=== PATIENT | female | born 2005 | race Caucasian/White ===

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

== ENCOUNTER 2023-09-06 09:24 | Outpatient (AMB) | payer OTHER, SELFPAY ==
[2023-09-06 09:35] VITALS: BP 118/72; PULSE 94; O2SAT 97; BMI 20.7
--- NOTE | 2023-09-06 09:35 | MHC.OFFWIV ---
Intake Vital Signs 09/06/23 09:35 Height 5 ft 6 in Weight 128 lb 6 oz BMI 20.7 BP 118/72 Blood Pressure Location Lt brachial Position Sitting Pulse 94 Pulse Source Pulse Oximeter Pulse Oximetry (%) 97 Oxygen Delivery Method Room Air Intake Visit Reasons: EP ?UTI Patient Tobacco Use Status: Never used Tobacco Allergies No Known Allergies Allergy (Verified 09/06/23 09:35) Medication List - Last Reconciled 09/06/23 by Maurisio Huynh MD levonorgestrel-ethinyl estrad 0.1-20 mg-mcg (Vienva) 1 tab PO DAILY Do you need a note to return to daycare/school/sports/work: No HPI EP ?UTI HPI Details 18-year-old female came in today to be evaluated for possible urinary tract infection Patient has been having symptoms for the past 2 days, patient says that she feels uncomfortable when she urinate She is also having slight itching vaginally He has no back pain, there is no fever no chills no abdominal pain There is no blood in urine. There is no vaginal discharge. UA is positive for leuk esterase 1+ and slight amount of blood 1+ Patient was instructed to push fluids I have sent Levaquin 250 mg once a day for 3 days. We will also send urine for culture [facility] Social History Patient Tobacco Use Status: Never used Tobacco Review of Systems Const All systems reviewed & are unremarkable except as noted in HPI and below Physical Exam Vital Signs: Last Vital Signs Pulse 94 09/06/23 09:35 BP 118/72 09/06/23 09:35 Pulse Ox 97 09/06/23 09:35 Oxygen Delivery Method Room Air 09/06/23 09:35 BMI result Body Mass Index 20.7 Const General: no acute distress Orientation/consciousness: patient oriented x3 Eyes General: appearance normal, both eyes and all related structures Resp Effort & Inspection: normal respiratory effort and able to speak in complete sentences GI Other: No suprapubic pain General: Yes no CVA tenderness Back/Spine/Pelvis Back: no CVA tenderness Neuro General: patient oriented x3 Psych Mental Status: mental status grossly normal Results AMB Urinalysis, Automated UA Leukoctes 70 Dannie/uL Last Edit by Meliton Florentino CMA on 09/06/23 09:38 UA Nitrite Negative Last Edit by Meliton Florentino CMA on 09/06/23 09:38 UA Urobilinogen 0.2 mg/dL Last Edit by Meliton Florentino CMA on 09/06/23 09:38 UA Protein 30 mg/dL Last Edit by Meliton Florentino CMA on 09/06/23 09:38 UA pH 6.0 Last Edit by Meliton Florentino CMA on 09/06/23 09:38 UA Blood 25 Andi/uL Last Edit by Meliton Florentino CMA on 09/06/23 09:38 UA Specific [place] 1.025 Last Edit by Meliton Florentino CMA on 09/06/23 09:38 UA Ketone Negative Last Edit by Meliton Florentino CMA on 09/06/23 09:38 UA Bilirubin 1 mg/dL Last Edit by Meliton Florentino CMA on 09/06/23 09:38 UA Glucose 0 mg/dL Last Edit by Meliton Florentino CMA on 09/06/23 09:38 Results Reviewed Results Reviewed: Laboratory Last Values Urine pH (Auto) 6.0 09/06/23 09:37 Specific [place] (Auto) 1.025 09/06/23 09:37 Urine Protein (Auto) 30 mg/dL 09/06/23 09:37 Glucose (UA)(Auto) 0 mg/dL 09/06/23 09:37 Urine Ketones (Auto) Negative 09/06/23 09:37 Urine Blood (Auto) 25 Andi/uL 09/06/23 09:37 Urine Nitrite (Auto) Negative 09/06/23 09:37 Urine Bilirubin (Auto) 1 mg/dL 09/06/23 09:37 Urine Urobilinogen (Auto) 0.2 mg/dL 09/06/23 09:37 Leukocyte Esterase (Auto) 70 Dannie/uL 09/06/23 09:37 Assessment & Plan Assessment & Plan (1) Acute cystitis: Code(s): N30.00 - Acute cystitis without hematuria Qualifiers: Hematuria presence: with hematuria Qualified Code(s): N30.01 - Acute cystitis with hematuria (2) Vaginal itching: Code(s): N89.8 - Other specified noninflammatory disorders of vagina Plan 18-year-old female came in today to be evaluated for possible urinary tract infection Patient has been having symptoms for the past 2 days, patient says that she feels uncomfortable when she urinate She is also having slight itching vaginally He has no back pain, there is no fever no chills no abdominal pain There is no blood in urine. There is no vaginal discharge. UA is positive for leuk esterase 1+ and slight amount of blood 1+ Patient was instructed to push fluids I have sent Levaquin 250 mg once a day for 3 days. We will also send urine for culture Orders: Orders Urine Culture Today N30.00 - Acute cystitis without hematuria AMB Urinalysis Automated Today Z13.9 - Encounter for screening, unspecified Medications: New levofloxacin 250 mg PO DAILY 3 days 3 tabs 0RF nystatin Use it at night 1 appl topical DAILY 7 days 15 grams 0RF Vaginal itching Coding Level of Care Code Est Pt Level 3 (04068) Diagnoses Acute cystitis with hematuria N30.01 Hematuria presence: with hematuria Vaginal itching N89.8
== END 2023-09-06 10:37 | disposition home or self-care (01) ==
PROVIDERS: Visit Provider Internal Medicine
DX: N30.01 Acute cystitis with hematuria (principal); N89.8 Other specified noninflammatory disorders of vagina; Z13.9 Encounter for screening, unspecified
CPT/HCPCS: 81003; 99213

== ENCOUNTER 2023-09-06 11:48 | Outpatient (REF) | payer OTHER, SELFPAY | END 2023-09-06 11:49 | disposition home or self-care (01) | LOC: HO.LNP 11:48 | PROVIDERS: Visit Provider Internal Medicine | DX: N30.00 Acute cystitis without hematuria (principal); Z13.9 Encounter for screening, unspecified | CPT/HCPCS: 87086; 87088 ==

== ENCOUNTER 2024-05-31 12:06 | Outpatient (AMB) | payer OTHER, SELFPAY ==
[2024-05-31 12:43] VITALS: BP 116/70; PULSE 102; TEMP 37.6; O2SAT 98
--- NOTE | 2024-05-31 12:43 | AM.OFFWIN_ITS ---
Intake Vital Signs 05/31/24 12:43 Weight 144 lb BP 116/70 Blood Pressure Location Rt brachial Position Sitting Pulse 102 H Pulse Source Pulse Oximeter Temp 99.6 F Temp Source Oral Pulse Oximetry (%) 98 Oxygen Delivery Method Room Air Intake Visit Reasons: EP flu symptoms Intake Note: Patient here for cough, congestion, body aches and headaches that started yesterday. she states everyone in her house has the flu but she was out of town for a little while and since being back symptoms kind of hit her all at once. Patient Tobacco Use Status: Never used Tobacco Allergies No Known Allergies Allergy (Verified 09/06/23 09:35) Do you need a note to return to daycare/school/sports/work: Yes HPI HPI Comments History of Present Illness Details 19 y/o female patient who presents to [facility] walk [facility] clinic with c/o URI symptoms since yesterday. She c/o cough, chest/nasal congestion, body aches and headaches. Reports that she was out of town ([place], [place]) for Spring Break. Her Family home is currently sick with Influenza Infection. [facility] Medical History (Updated 05/31/24 @ 12:52 by Jenise Waite NP) Acute respiratory disease Social History Patient Tobacco Use Status: Never used Tobacco Review of Systems Const All systems reviewed & are unremarkable except as noted in HPI and below Physical Exam Vital Signs: Last Vital Signs Temp 99.6 F 05/31/24 12:43 Pulse 102 H 05/31/24 12:43 BP 116/70 05/31/24 12:43 Pulse Ox 98 05/31/24 12:43 Oxygen Delivery Method Room Air 05/31/24 12:43 Const General: cooperative and no acute distress Nutritional Appearance: well nourished Orientation/consciousness: patient oriented x3 HEENT Head: Yes normocephalic Ears: external ears normal and TM abnormal with fluid behind the TM bilateral General nose exam: Abnormal mucous membranes and turbinates present boggy and Nasal discharge present Face and sinus: Yes sinuses nontender Mouth: moist mucous membranes Throat: Yes postnasal drainage Resp Effort & Inspection: normal respiratory effort and able to speak in complete sentences Auscultation: clear to auscultation bilaterally, no crackles, no rales, no rhonchi and no wheezes Cardio Heart sounds: S1 normal heart sound present and S2 normal heart sound present Neuro General: patient oriented x3 Assessment & Plan Assessment & Plan (1) Acute respiratory disease: Code(s): J06.9 - Acute upper respiratory infection, unspecified Plan: Ordered SARs Ordered Tamiflu due to recent contact with Family members with Influenza. OTC cold/Flu remedies Acetaminophen for fever and pain relief. Orders: Orders SARS-CoV2/FLU/RSV Today J06.9 - Acute upper respiratory infection, unspecified Medications: New oseltamivir (Tamiflu) 75 mg PO BID 5 days 10 caps 0RF J06.9 - Acute upper respiratory infection, unspecified acetaminophen 1,000 mg (2 x 500 mg) PO Q6H PRN 30 caps 0RF pain J06.9 - Acute upper respiratory infection, unspecified dextromethorphan-guaifenesin 5-100 mg/5 mL (Robitussin Honey Max DM) 10 mL PO Q8H PRN 500 mL 0RF cough and cold J06.9 - Acute upper respiratory infection, unspecified Coding Level of Care Code Est Pt Level 4 (81404) Diagnoses Acute respiratory disease J06.9 Time Spent (min) 20
--- OUTSIDE RECORDS SUMMARY | 2024-05-31 14:30 | XMS_ITS | Clinical Summary ---
Author Organization [facility] [address] [place] [address] [place] [address] Phone Care Team Providers Care Linoleum Tile Floor Layer Name Role Phone Bernardo Bravo MD Primary Care Pr ovider Allergies No known active allergies Medications fluconazole (DIFLUCAN) 150 mg tablet Take 1 tab as needed for symptoms. May repeat dose in 72hrs if symptoms persist. 2 tablet 5 Active levonorgestrel- ethinyl estradiol (AVIANE,ALESSE) 0.1-20 mg-mcg per tablet Take 1 tablet by mouth 1 (one) time each day. 28 tablet 5 5 Active levonorgestrel- ethinyl estradiol (AVIANE,ALESSE) 0.1-20 mg-mcg per tablet Take 1 tablet by mouth 1 (one) time each day. 4 05/02/19 25 Discontinu ed(Reorder ) Active Problems Problem Noted Date Diagnosed Date Hearing loss of right ear 08/16/2018 Overview (05/02/2024): Seen by Razia Banegas pharmacy tech customer service 03/15/2019 Left ear normal hearing. Right ear moderately severe hearing loss at 1981-8868 Hz Consistent use of hearing aids. Suggests preferential seating and reduced background noise. Needs to face talker and be within 6-8 fet of talker, speaking slowly Intrinsic atopic dermatitis 06/11/2010 Encounters Date Type Department Care Team Description 05/31/2024 Nurse Triage Adult Medicine [address] [address] Bernardo Bravo MD Flu Symptoms 05/02/2024 5:00 PM EST Office Visit Adult Medicine [address] [phone] Katie Mejia PA Vaginal yeast infection (Primary Dx); Referral of patient from Last 3 Months Immunizations Name Administration Dates Next Due DTaP 5 pertussis antigens, D iptheria Tetanus acellular pertussis (Daptacel) 6wks to less than 7yo 06/23/2007,11/06/2004,2003,07/17,2003 HPV 9-valent (Gardisil) 9yo to less than 46yo 08/10/2017,12/24/2015 Hepatitis A Pediatric (Havri x; Vaqta) 12mo to less than 19yo 12/24/2015,10/26/2013 Hepatitis B Pediatric (Enger ix B; Recombivax HB) to less than 20 yo 2003,2003,2003 HiB PRP-T conjugate (Acthib, Hiberix) 6wks and older 2003,2003 Hib (HbOC) 08/05/2004,2003 IPV Inactivated polio (Ipol) 6wks and older 06/23/2007,2003,2003,05/09 Influenza Quadrivalent, 0.5m l, preservative free (Fluarix; FluLaval; Fluzone) ages 6mo and older (Afluria) 3yo and older 02/20/2020 Influenza Quadrivalent, with preservative (Fluzone; Afluria) 6mo and older 12/24/2015 Influenza trivalent, with pr eservative (Fluzone; Afluria) 6mo and older 03/25/2006,05/15/2004,04/10/2004 Influenza, live, intranasal, quadrivalent (FluMist) 2yo to less than 50yo 11/10/2012 MMR, measles mumps and rubel la Live (Priorix; M-M-R II) 12mo and older 06/23/2007,04/10/2004 Meningococcal MCV4P 08/29/2019,11/01/2014 Pneumococcal Conjugate Vacci ne, 7 Valent 08/05/2004,2003,2003,05/09 Tdap Tetanus diptheria acell ular pertussis (Boostrix; Adacel) 7yo and older 11/01/2014 Varicella live (Varivax) 12m o and older 06/23/2007,04/10/2004 Social History Tobacco Use Types Packs/Day Years Used Date Smoking Tobacco: Never Assessed Comments Unknown Sex and Gender Information Value Date Recorded Sex Assigned at Not on file Legal Sex Female 11:08 AM EDT Gender Identity Not on file Sexual Orientation Not on file Last Filed Vital Signs Vital Sign Reading Time Taken Comments Blood Pressure 104/70 05/02/2024 4:55 PM EST Pulse 95 05/02/2024 4:55 PM EST Temperature 36.6 ??C (97.8 ??F) 05/02/2024 4:55 PM ES T Respiratory Rate 12 05/02/2024 4:55 PM EST Oxygen Saturation - - Inhaled Oxygen Concentration - - Weight 65.8 kg (145 lb) 05/02/2024 4:55 PM EST Height 167.6 cm (5' 6 ) 05/02/2024 4:55 PM EST Body Mass Index 23.4 05/02/2024 4:55 PM EST Plan of Treatment Health Maintenance Due Date Last Done Comments Gonorrhea/Chlamydia Screening 2003 Meningococcal B Vacine (1 of 2 - Standard) 2019 Annual Well Child Visit (3-21 years old) 10/14/2023 08/04/2022, 11/04/2020, 08/22/2019, Additional history exists Depression Screening 10/14/2023 HIV Screening 10/14/2023 Hepatitis C Screening 10/14/2023 Social Influencers of Health Screening 10/14/2023 COVID-19 Vaccine ( season) 2023 Influenza Vaccine (#1) 2023 , 12/24/2015, 11/10/2012, Additional history exists Cervical Cancer Screening: Pap Smear 2024 DTaP,Tdap,and Td Vaccines (7 - Td or Tdap) 11/01/2024 11/01/2014, 06/23/2007, 11/06/2004, Additional history exists Hepatitis B Vaccines Completed 2003, 2003, 2003 HIB Vaccines Completed 08/05/2004, 10/2003, 2003, Additional history exists Pneumococcal Vaccine: Pediatrics (0 to 5 Years) and At-Risk Patients (6 to 64 Years) Completed 08/05/2004, 2003, 2003, Additional history exists IPV Vaccines Completed 06/23/2007, 12/12, 2003, Additional history exists MMR Vaccines Completed 06/23/2007, 04/10/2004 Varicella Vaccines Completed 06/23/2007, 04/10/2004 Hepatitis A Vaccines Completed 12/24/2015, 10/27/19 HPV Vaccines Completed 08/10/2017, 12/24/2015 Meningococcal ACWY Vaccine Completed 08/29/2019, RSV Immunization Patients Under 20 months Aged Out No longer eligible based on patient's age to complete this topic Insurance [facility] [employer] Care Teams Linoleum Tile Floor Layer Relationship Specialty Start Date End Date Bernardo Bravo MD [address], [place] [phone] PCP - General 09/05/23
--- OUTSIDE RECORDS SUMMARY | 2024-05-31 14:30 | XMS_ITS | Encounter Summary ---
Author Organization [facility] Address [address] [place] [address] Care Team Providers Care Mathematician Research Name Role Phone Bernardo Bravo MD Primary Care Pr ovider Reason for Visit * Reason Onset Date Comments Flu Symptoms 05/31/2024 Encounter Details Date Type Department Care Team (Late st Contact Info) Description 05/31/2024 Nurse Triage Adult Medicine [address] [phone] Bernardo Bravo MD [address] [place] [id number] Flu Symptoms Social History Tobacco Use Types Packs/Day Years Used Date Smoking Tobacco: Never Assessed Comments Unknown Sex and Gender Information Value Date Recorded Sex Assigned at Not on file Legal Sex Female 11:08 AM EDT Gender Identity Not on file Sexual Orientation Not on file documented as of this encounter Progress Notes * Teresa Cifuentes RN - 05/31/2024 9:34 AM EDT She was advised to go to any [facility] of her choice as she is requesting a note excusing her from work. She is in agreement with this plan. Reason for Disposition Cough Answer Assessment - Initial Assessment Questions 1. ONSET: When did the cough begin? Yesterday 2. SEVERITY: How bad is the cough today? 08/21 3. SPUTUM: Describe the color of your sputum (e.g., none, dry cough; clear, white, yellow, green) clear 4. HEMOPTYSIS: Are you coughing up any blood? If Yes, ask: How much? (e.g., flecks, streaks, tablespoons, etc.) No hemopysis 5. DIFFICULTY BREATHING: Are you having difficulty breathing? If Yes, ask: How bad is it? (e.g., mild, moderate, severe) - MILD: No SOB at rest, mild SOB with walking, speaks normally in sentences, can lie down, no retractions, pulse < 100. - MODERATE: SOB at rest, SOB with minimal exertion and prefers to sit, cannot lie down flat, speaksin phrases, mild retractions, audible wheezing, pulse 100-120. - SEVERE: Very SOB at rest, speaks in single words, struggling to breathe, sitting hunched forward,retractions, pulse > 120. No shortness of breath 6. FEVER: Do you have a fever? If Yes, ask: What is your temperature, how was it measured, and when did it start? She reports a fever with a temp of 99-100 degrees 7. CARDIAC HISTORY: Do you have any history of heart disease? (e.g., heart attack, congestive heart failure) No 8. LUNG HISTORY: Do you have any history of lung disease? (e.g., pulmonary embolus, asthma, emphysema) No 9. PE RISK FACTORS: Do you have a history of blood clots? (or: recent major surgery, recent prolonged travel, bedridden) She returned from [place] on Tuesday. OTHER SYMPTOMS: Do you have any other symptoms? (e.g., runny nose, wheezing, chest pain) Runny nose, body aches, sore throat, chills, headache 11. : Is there any chance you are ? When was your last menstrual period? No. She currently has her period. 12. TRAVEL: Have you traveled out of the country in the last month? (e.g., travel history, exposures) Pt's mother, older and younger brother all tested positive for Flu A at the doctors. Protocols used: Cough - Acute Lhtadehkvv-V-UI * Pretty Valenzuela - 05/31/2024 8:55 AM EDT Patient call requires triage: Symptoms patient is presenting: body aches, chills, fever, stuffy nose, cough, headache, Family members have FLU A How long has patient had these symptoms?: 2 days For ALL patients calling to schedule any appointment (routine, sick visit, follow up, consult, etc.) in the outpatient setting please ask the following questions: Do you have fever of higher than 101, sore throat with difficulty swallowing or severe shortness ofbreath? no If YES to any of these above symptoms, send a message to triage and do not book. Red dot. If no, an audio or video visit should be booked. Have you had close contact with someone with Coronavirus in the last 14 days? no Have you traveled abroad? no Have you traveled recently to another state outside of [place], [place], [place], [place], [place], [place], [place]? no o If yes, did you quarantine for 14 days or have a negative covid test? no If yes to any of the above, patient is not to be scheduled in office until after 14 day quarantine or negative covid test. If pain or injury related was it due to an accident at work or from a motor vehicle accident? If yes, date of accident/Injury: No If yes, gather 3rd alliance party insurance information Third Alliance Party Information: not applicable PCP: Bernardo Bravo MD Payor: [facility] / Plan: [facility] MEDICAID / Product Type: *No Product type* / documented in this encounter Plan of Treatment Not on file documented as of this encounter Visit Diagnoses Not on filedocumented in this encounter Care Teams Mathematician Research Relationship Specialty Start Date End Date Bernardo Bravo MD [address] [place] [phone] PCP - General 09/05/23 documented as of this encounter
--- OUTSIDE RECORDS SUMMARY | 2024-05-31 14:30 | XMS_ITS | Encounter Summary ---
Author Organization [facility] Address [address] [place] [phone] Phone Care Team Providers Care Bathroom Tiling Professional Name Role Phone Provider, Breanna WRAY Primary Care Provider [phone] Encounter Details Date Type Department Care Team ([facility] st Contact Info) Description 10/28/2016 Conversion Encounter [facility] - [address] [address] Social History Tobacco Use Types Packs/Day Years Used Date Smoking Tobacco: Never Assessed Comments Unknown Sex and Gender Information Value Date Recorded Sex Assigned at Not on file Legal Sex Female 5:05 PM EDT Gender Identity Female 03/20/2020 11:28 AM EST Sexual Orientation Straight 03/25/2020 9: 14 AM EST documented as of this encounter Plan of Treatment Not on file documented as of this encounter Visit Diagnoses Not on filedocumented in this encounter Care Teams Bathroom Tiling Professional Relationship Specialty Start Date End Date Provider, MD Breanna [address] [place] [address] PCP - General Pediatrics 05/05/23 01/17/24 documented as of this encounter
--- OUTSIDE RECORDS SUMMARY | 2024-05-31 14:30 | XMS_ITS | Clinical Summary ---
Author Organization [facility] Address [address] [place] [address] Phone Care Team Providers Care Caustic Pump Operator Name Role Phone Unavailable Primary Care Provider Unavailabl e Allergies No known active allergies Medications Vienva 0.1-20 MG-MCG per tabletIndications: Encounter for initial prescription of contraceptive pills TAKE 1 TABLET BY MOUTH EVERY DAY 28 tablet 11 4 Active Active Problems Problem Noted Date Diagnosed Date Hearing loss of right ear 08/16/2018 Overview (05/15/2019): Seen by Razia Banegas bank examiner 03/15/2019 Left ear normal hearing. Right ear moderately severe hearing loss at 0360-5027 Hz Consistent use of hearing aids. Suggests preferential seating and reduced background noise. Needs to face talker and be within 6-8 fet of talker, speaking slowly Assessment & Plan (08/22/2019 4:13 PM EDT): Has hearing aide. Followed yearly by bank examiner Intrinsic atopic dermatitis 06/11/2010 Assessment & Plan (08/22/2019 4:13 PM EDT): No issues currently No meds currently - occas needs topical steroid Resolved Problems Problem Noted Date Diagnosed Date Resolved Date Need for case management follow-up 08/22/2019 08/04/2022 Overview (11/04/2020): 08/22/2019 : Jenae who is 14 yr 5 mo was seen today during the covid 19 pandemic. When the pandemic subsides, she needs Age appropriate vital signs, Age appropriate, 14 yr 5 mo (menactra), immunizations, Age appropriate Vision +/- hearing screening, GC/Chlamydia screening Family may wish to get menactra when in for Influenza vaccine this Fall 11/04/2020 : Jenae who is 15yr 7mo was seen today during the covid 19 pandemic. When the pandemic subsides, she needs Age appropriate vital signs, Age appropriate, 15yr 7mo, immunizations, Age appropriate Vision +/- hearing screening, CBC, GC/Chlamydia screening, Lipid screening Encounters Date Type Department Care Team Description 04/08/[address] [facility] [address] [place] [address] Maru Pardo MD Encounter for initial prescription of contraceptive pills 03/21/[address] [facility] [address] [place] [address] Maru Pardo MD Encounter for initial prescription of contraceptive pills from Last 3 Months Immunizations Immunization Administration Dates Next Due DTaP 5 06/23/2007, 5,2003,07/17,2003 HPV Vaccine 9 Valent 08/10/2017,12/24/2015 Hep A, ped/adol 12/24/2015,10/26/2013 Hep B, ped/adol 2003,2003,2003 Hib (HbOC) 08/05/2004,2003 Hib (PRP-T) 2003,2003 IPV 06/23/2007, 4,2003,05/09 Influenza, injectable, quadrivalent 12/24/2015 Influenza, injectable, quadr ivalent, preservative free 02/20/2020 Influenza, injectable, trivalent 03/25/2006,03/0 06/2004,04/10/2004 Influenza, intranasal, quadrivalent 11/10/2012 MMR 06/23/2007,04/10/2004 Meningococcal Conj (Menactra) MCV4P 08/29/2019,0 11/01/2014 Pneumococcal Conjugate 08/05/2004,2003,2003,05/09 Tdap 11/01/2014 Varicella 06/23/2007,04/10/2004 Family History Relation Name Status Comments Brother Meliton Alive Brother: Alive and well, Alive and well Father Meliton Sánchez Alive Father: Hyper tension Mother Elina Ag Alive Mother: Alive a nd well Other Family history of Asthma, Family history of Diabetes mellitus, Family history of Sudden /[place] under 55, Family history of Migraines Social History Tobacco Use Types Packs/Day Years Used Date Smoking Tobacco: Never Smokeless Tobacco: Never Comments:never smoker Alcohol Use Standard Drinks/Week Comments Never 0 (1 standard drink = 0.6 oz pur e alcohol) Hunger/Food Answer Date Recorded In the last 12 months, did y ou or your family ever eat less than you felt you should because there wasn't enough money for food? No 08/02/2022 Stable Housing Answer Date Recorded Are you worried that in the next 2 months you may not have stable housing? No 08/02/2022 Transportation Concerns Answer Date Rec orded In the last 12 months, have you or your family ever had to go without healthcare because you didn't have a way to get there? No 08/02/2022 Hazards in Home Answer Date Recorded Think about the place you li ve. Do you have problems with any of the following? Pests (mice or roaches), mold, no/not working smoke detectors, water leaks, no window guards. No 2022 Financing Utilities Answer Date Recorde d In the last 12 months, has t he electric, gas, oil, or water company threatened to shut off your services in your home? No 08/02/2022 Safety at Home Answer Date Recorded Are you or your family worried about feeling saf e in your home? No 08/02/2022 Outside Support Answer Date Recorded Do you feel that you need mo re support from other people or programs to help you care for yourself or your family? No 08/02/2022 Understanding Health Concerns Answer Da te Recorded Do you need help understandi ng your or your child's healthcare needs (diagnosis, medications, plan, etc.)? No 08/02/2022 Financing Health Concerns Answer Date R ecorded In the last 12 months, was t here a time when your child needed to see a doctor or get medications or supplies but could not because of cost? No 08/02/2022 Missing School or Work Answer Date Kali rded Did you or your child miss s chool or work because of a health problem that could have been avoided? No 08/02/2022 Comments No Sex and Gender Information Value Date Recorded Sex Assigned at Not on file Legal Sex Female 5:05 PM EDT Gender Identity Female 03/20/2020 11:28 AM EST Sexual Orientation Straight 03/25/2020 9: 14 AM EST Last Filed Vital Signs Vital Sign Reading Time Taken Comments Blood Pressure 117/66 08/04/2022 8:39 AM EDT Pulse 73 08/04/2022 8:39 AM EDT Temperature 37.1 ??C (98.8 ??F) 07/14/2022 4:28 PM ED T Respiratory Rate - - Oxygen Saturation - - Inhaled Oxygen Concentration - - Weight 65 kg (143 lb 3.2 oz) 08/04/2022 8:39 AM EDT Height 167.6 cm (5' 6 ) 08/04/2022 8:39 AM EDT Body Mass Index 23.11 08/04/2022 8:39 AM EDT Plan of Treatment Health Maintenance Due Date Last Done Comments Men B Vaccine (1 of 2 - Standard) 2019 HIV Screening 04/12/2023 04/12/2022 Syphilis Screening (consider for higher risk patients) 04/12/2023 04/12/2022 Influenza Vaccines (#1) 2023 02/20/20 20, 12/24/2015, 11/10/2012, Additional history exists COVID-19 Vaccine (1 - 2023-2 5 season) 2023 DTaP,Tdap,and Td Vaccines (7 - Td or Tdap) 11/01/2024 11/01/2014, 06/23/2007, 11/06/2004, Additional history exists Hepatitis B Vaccines Completed 2003, 2003, 2003 HIB Vaccines Completed 08/05/2004, 10/2003, 2003, Additional history exists Pneumococcal Vaccine Completed 08/05/2004, 2003, 2003, Additional history exists IPV Vaccines Completed 06/23/2007, 12/12, 2003, Additional history exists MMR Vaccines Completed 06/23/2007, 04/10/2004 Varicella Vaccines Completed 06/23/2007, 04/10/2004 Hepatitis A Vaccines Completed 12/24/2015, 10/27/19 14 HPV Vaccines Completed 08/10/2017, 12/24/2015 Meningococcal Vaccine Completed 08/29/2019, 015 Procedures * Due to [place] [employer] law, this organization might not be sharing sensitive test results. Procedure Name Priority Date/Time Associated Diagnosis Comments CHLAMYDIA AND GONORRHEA, AMPLIFIED Routine 08/04/2022 9:17 AM EDT Encounter for screening examination for sexually transmitted disease RPR Routine 04/12/2022 2:53 PM EST Routine screening for STI (sexually transmitted infection) from Last 3 Months or Most Recently Relevant to Health Maintenance Results * Due to [place] [employer] law, this organization might not be sharing sensitive test results. * Chlamydia and Gonorrhoea, Amplified (08/04/2022 9:17 AM EDT) Chlamydia Trachomatis, DNA Probe NEGATIVE (NEG) [facility] Comment: No Chlamydia Trachomatis RNA detected in this patient's sample ? (REFERENCE RANGE/NORMAL VALUE: NOT DETECTED) ? Note: This test uses leather leveler- mediated amplification method to detect rRNA from C. Trachomatis URINE GC AMP PROBE NEGATIVE (NEG) [facility] Comment: No Neisseria Gonorrhoeae RNA detected in this patient's sample ? (REFERENCE RANGE/NORMAL VALUE: NOT DETECTED) ? NOTE: This test uses leather leveler-mediated amplification method to detect rRNA from N.Gonorrhoeae. A negative result does not preclude infection. In the case of a negative urine result, testing of an endocervical(female) or urethral (male) specimen is recommended if there is high clinical suspicion of infection. Due to very high sensitivity of Nucleic Acid Amplification Test, false positive results may occur. Therefore, specimen handling is extremely important. In patients in whom the disease is unlikely, additional sample for testing should be considered after an initial positive result. The performance characteristics of this test have not been evaluated in children. The Aptima Combo2 assay is not intended for the evaluation of suspected sexual abuse or for other medico-legal indications. The ordering provider should assess if the patient had consensual sex without risk of sexual abuse. Consult the [facility] if needed. Contact phone number . Therapeutic failure or success cannot be determined with the Aptima Combo2 assay since nucleic acid may persist following appropriate antimicrobial therapy. The Centers for Disease Control and Prevention (CDC) recommends confirmatory retesting using culture or a different nucleic acid amplification test when positive results occur, if indicated. Testing performed or reported by [facility], a Service of [facility], [address] [place] [address] Hayden Pisano MD, Gym Attendant [facility]# [id number] Urine (Urine) 08/04/2022 9:1 7 AM EDT 08/04/2022 4:05 PM EDT Result [facility] Maru Pardo MD LAB MICROBIOLOGY - GENERAL ORDER JUAN ALBERTO Final Result Performing Organization Address [facility] de Phone Number [facility] * RPR (04/12/2022 2:53 PM EST) [facility] SYPHILIS SCREEN BY SB NEGATIVE (NEG) [facility] Comment: Reference range: Negative This test was performed on the [employer] Soft Sugar Operator immunoassay system. RPR Titer NOT INDICATED [facility] T pallidum Antibodies (TP-PA) NOT INDICATED [facility] SYPHILIS INTERPRETATION Indicative of the absence of infection with Treponemal pallidum. Test may be negative in cases of incubating or early primary syphilis. Consider repeat testing in several weeks if clinical suspicion is high. [facility] Comment: Testing performed or reported by [facility], a Service of [facility], [address] [place] [address] Hayden Pisano MD, Gym Attendant CLIA# [id number] Blood (Blood, Venous) 04/12/2022 2:53 PM EST 04/12/2022 2:55 PM EST Result [facility] Sara Guerrero MD LAB BLOOD ORDERABLES Final Re sult Performing Organization Address [facility] Co de Phone Number [facility] from Last 3 Months or Most Recently Relevant to Health Maintenance
--- OUTSIDE RECORDS SUMMARY | 2024-05-31 14:30 | XMS_ITS | Encounter Summary ---
Author Organization [facility] Address [address] [place] [phone] Phone Care Team Providers Care Physicist Solid State Name Role Phone Provider, Breanna WRAY Primary Care Provider [phone] Reason for Visit * Reason Comments Med Refill Encounter Details Date Type Department Care Team ([facility] st Contact Info) Description 04/09/2022 Refill [facility] [address] [place] [address] Maru Pardo MD [address] [place] [address] Encounter for initial prescription of contraceptive pills Social History Tobacco Use Types Packs/Day Years [...] there wasn't enough money for food? No 08/16/2018 Stable Housing Answer Date Recorded Are you worried that in the next 2 months you may not have stable housing? No 08/16/2018 Transportation Concerns Answer Date Rec orded In the last 12 months, have you or your family ever had to go without healthcare because you didn't have a way to get there? No 08/16/2018 Hazards in Home Answer Date Recorded Think about the place you li ve. Do you have problems with any of the following? Pests (mice or roaches), mold, no/not working smoke detectors, water leaks, no window guards. No 2018 Financing Utilities Answer Date Recorde d In the last 12 months, has t he electric, gas, oil, or water company threatened to shut off your services in your home? No 08/16/2018 Safety at Home Answer Date Recorded Are you or your family worried about feeling saf e in your home? No 08/16/2018 Outside Support Answer Date Recorded Do you feel that you need mo re support from other people or programs to help you care for yourself or your family? No 08/16/2018 Understanding Health Concerns Answer Da te Recorded Do you need help understandi ng your or your child's healthcare needs (diagnosis, medications, plan, etc.)? No 08/16/2018 Financing Health Concerns Answer Date R ecorded In the last 12 months, was t here a time when your child needed to see a doctor or get medications or supplies but could not because of cost? No 08/16/2018 Missing School or Work Answer Date Kali rded Did you or your child miss s chool or work because of a health problem that could have been avoided? No 08/16/2018 Comments No Sex and Gender Information Value Date Recorded Sex Assigned at Not on file Legal Sex Female 5:05 PM EDT Gender Identity Female 03/20/2020 11:28 AM EST Sexual Orientation Straight 03/25/2020 9: 14 AM EST documented as of this encounter Miscellaneous Notes * Telephone Encounter - Danyell Bonilla MD - 04/09/2022 2:05 PM EST Rx reviewed and e-prescribed to pharmacy. * Telephone Encounter - Elsa Tripathi RN - 04/09/2022 11:44 AM EST Pharm requesting med refill of OCP. Pt now calling requesting refill. Last PE 11/04/20. Pt transferred to front desk monitor to schedule PE. documented in this encounter Plan of Treatment Not on file documented as of this encounter Visit Diagnoses Diagnosis Encounter for initial prescription of contraceptive pills documented in this encounter Care Teams Physicist Solid State Relationship Specialty Start Date End Date Provider, MD Breanna [address] [place] [address] PCP - General Pediatrics 05/05/23 01/17/24 documented as of this encounter
--- OUTSIDE RECORDS SUMMARY | 2024-05-31 14:30 | XMS_ITS | Encounter Summary ---
Author Organization [facility] Address [address] [place] [address] Care Team Providers Care Field Crop Harvest Contractor Name Role Phone Bernardo Bravo MD Primary Care Pr ovider Reason for Referral * Consultation (Routine) - Authorized Specialty Diagnoses / Procedures Referred By Contact Referred To Contact Obstetrics and Gynecology Diagnoses Referral of patient Katie Mejia PA [address] [place] [address] Phone: tel: fax: Juanita Landon MD [address] [place] [address] Phone: tel: fax: Referral ID Status Reason Start Date Expiration Date Visits Requested Visits Authorized [id number] Authorized Specialty Services Required 05/02/2024 05/02/2025 1 1 Reason for Visit * Reason Comments Medication Visit Initial visit Encounter Details Date Type Department Care Team (Late st Contact Info) Description 05/02/2024 5:00 PM EST Office Visit [facility] [address] [place] [address] Katie Mejia PA [address] [place] [address] Vaginal yeast infection (Primary Dx); Referral of patient Social History Tobacco Use Types Packs/Day Years Used Date Smoking Tobacco: Never Assessed Comments Unknown Sex and Gender Information Value Date Recorded Sex Assigned at Not on file Legal Sex Female 11:08 AM EDT Gender Identity Not on file Sexual Orientation Not on file documented as of this encounter Last Filed Vital Signs Vital Sign Reading [...] Mass Index 23.4 05/02/2024 4:55 PM EST documented in this encounter Ordered Prescriptions Prescription Sig Dispense Quantity Refills Last Filled Start Date End Date levonorgestrel-eth inyl estradiol (AVIANE,ALESSE) 0.1-20 mg-mcg per tablet Take 1 tablet by mouth 1 (one) time each day. 28 tablet 5 05/02/2024 fluconazole (DIFLUCAN) 150 mg tablet Take 1 tab as needed for symptoms. May repeat dose in 72hrs if symptoms persist. 2 tablet 05/02/2024 documented in this encounter Progress Notes * MARIBEL Sahni - 05/02/2024 5:[address] Bernardo Bravo (PCP) [facility] * MARIBEL Sahni - 05/02/2024 5:00 PM EST CHIEF COMPLAINT: Medication Visit (Initial visit ) IDENTIFIER: Jenae Sánchez is a 19 y.o. old female. HPI: 19 year old female presents to office for initial visit Previously followed by Dr. Pardo at [facility] She is currently on OCP, requesting refill Discussed will refer to OBGYN but can provide bridge until she is able to establish She states she has noticed vaginal itching and discharge for the past few days. She is concerned she may have a yeast infection as symptoms feel similar to previous yeast infection. She has not used anything OTC. LMP 2 weeks ago. She is sexually active with one male partner, in monogamous relationship. She denies any urinary symptoms, pelvic pain, abdominal pain, flank or back pain, fever, chills ROS: GENERAL: No malaise or fever HEENT: No changes in hearing or vision RESPIRATORY: No cough, wheezing or shortness of breath CARDIOVASCULAR: No chest pain GI: No abdominal pain, diarrhea, constipation, blood in stool : SEE HPI MUSCULOSKELETAL: No joint pain or swelling NEURO: No persistent headache, syncope, numbness All other systems reviewed and negative. PAST MEDICAL HISTORY: Patient Active Problem List Diagnosis Date Noted Hearing loss of right ear 08/16/2018 Intrinsic atopic dermatitis 06/11/2010 ACTIVE MEDICATIONS: Current Outpatient Medications Medication Instructions fluconazole (DIFLUCAN) 150 mg tablet Take 1 tab as needed for symptoms. May repeat dose in 72hrs ifsymptoms persist. levonorgestrel-ethinyl estradiol (AVIANE,ALESSE) 0.1-20 mg-mcg per tablet 1 tablet, oral, Daily ALLERGIES: No Known Allergies PHYSICAL EXAM: Blood pressure 104/70, pulse 95, temperature 36.6 ??C (97.8 ??F), resp. rate 12, height 1.676 m (66 ), weight 65.8 kg (145 lb). Body mass index is 23.4 kg/m??. APPEARANCE: Alert and in no acute distress EYES: Conjunctiva and sclera normal. HEART: RRR with normal S1 and S2 LUNG: clear to auscultation, no wheezing, rales, or rhonchi EXTREMITIES: Extremities warm and well perfused without clubbing, cyanosis, or edema NEURO: Awake, alert and oriented x 3 IMPRESSION: 1. Vaginal yeast infection 2. Referral of patient PLAN: Will treat for possible yeast infection with fluconazole. Advised if symptoms do not improve with treatment to follow-up Referral to OBGYN placed Patient to schedule full physical Patient verbalized understanding and is in agreement with plan ADDITIONAL ORDERS: Orders Placed This Encounter Procedures Ambulatory referral to Obstetrics / Gynecology AMB REFERRAL TO OB-MAINTENANCE PAINTER APPRENTICE MARIBEL Sahni on 05/02/2024 at 5:45 PM EST Today's documentation was made using voice recognition software.This note may contain grammatical errors secondary to this software. documented in this encounter Plan of Treatment Scheduled Referrals Name Type Priority Associated Diagnoses Order Schedule Ambulatory referral to Obstetrics / Gynecology Outpatient Referral Routine Referral of patient 1 Occurrences starting 05/02/2024 until 05/02/2025 documented as of this encounter Visit Diagnoses Diagnosis Vaginal yeast infection- Primary Candidiasis of vulva and vagina Referral of patient Referral of patient without examination or treatment documented in this encounter Discontinued Medications Medication Sig Discontinue Reason Start Date End Da te levonorgestrel-ethinyl estradiol (AVIANE,ALESSE) 0.1-20 mg-mcg per tablet Take 1 tablet by mouth 1 (one) time each day. Reorder 03/23/2023 05/02/2024 documented as of this encounter Care Teams Field Crop Harvest Contractor Relationship Specialty Start Date End Date Bernardo Bravo MD [address] [place] [id number] PCP - General 09/05/23 documented as of this encounter
== END 2024-05-31 13:40 | disposition home or self-care (01) ==
PROVIDERS: Visit Provider Nurse Practitioner Family
DX: J06.9 Acute upper respiratory infection, unspecified (principal)

== ENCOUNTER 2024-05-31 12:06 | Outpatient (REF) | payer OTHER, SELFPAY ==
[2024-05-31 18:35] LABS: Influenza A PCR NEGATIVE (Negative); Influenza B PCR POSITIVE (Negative); Resp Syncy Virus RNA Qual PCR NEGATIVE (Negative); SARS COV2 PCR INHOUSE NEGATIVE (Negative)
== END 2024-05-31 12:07 | disposition home or self-care (01) ==
LOC: HO.LAB 12:06
PROVIDERS: PCP Nurse Practitioner Family; Visit Provider Nurse Practitioner Family
DX: J06.9 Acute upper respiratory infection, unspecified (principal)
CPT/HCPCS: 0241U; 99212

== ENCOUNTER 2024-11-22 10:06 | Outpatient (REF) | payer OTHER, SELFPAY ==
[2024-11-22 15:03] LABS: Resp Syncy Virus RNA Qual PCR NEGATIVE (Negative); SARS COV2 PCR INHOUSE NEGATIVE (Negative)
== END 2024-11-22 10:07 | disposition home or self-care (01) ==
LOC: HO.LAB 10:06
PROVIDERS: PCP Nurse Practitioner Family; Visit Provider Nurse Practitioner Family
DX: J06.9 Acute upper respiratory infection, unspecified (principal); J02.9 Acute pharyngitis, unspecified
CPT/HCPCS: 87637; 99212

== ENCOUNTER 2024-11-22 10:06 | Outpatient (AMB) | payer OTHER, SELFPAY ==
[2024-11-22 10:11] VITALS: BP 104/58; PULSE 94; TEMP 39.1; O2SAT 96; BMI 24.2
--- NOTE | 2024-11-22 10:11 | AM.OFFWIN_ITS ---
Intake Vital Signs 11/22/24 10:11 Height 5 ft 6 in Weight 150 lb BMI 24.2 BP 104/58 L Blood Pressure Location Rt brachial Position Sitting Pulse 94 Pulse Source Pulse Oximeter Temp 102.3 F H Temp Source Oral Pulse Oximetry (%) 96 Oxygen Delivery Method Room Air Intake Visit Reasons: EP Flu? Work note Intake Note: pt presents with body aches, nausea & vomiting, migraines, body chills & fevers, sore throa- s/s yesterday Patient Tobacco Use Status: Never used Tobacco Allergies No Known Allergies Allergy (Verified 11/22/24 10:11) Medication List - Last Reconciled 11/22/24 by Jenise Waite NP acetaminophen 1,000 mg (2 x 500 mg) PO Q6H PRN levonorgestrel-ethinyl estrad 0.1-20 mg-mcg (Vienva) 1 tab PO DAILY Do you need a note to return to daycare/school/sports/work: Yes HPI HPI Comments History of Present Illness Details 19 y/o Female patient who presents to health system walk in clinic with c/o URI symptoms since yesterday. Pt reports Nausea, vomiting, Chills, Fevers and Body Aches. Reports her younger siblings started school this week and they all came back home with URI symptoms. She has not taken any OTC medications. Denies cough, wheezing, CP or SOB. [facility] Medical History (Updated 05/31/24 @ 12:52 by Jenise Waite NP) Acute respiratory disease Social History Patient Tobacco Use Status: Never used Tobacco Review of Systems Const All systems reviewed & are unremarkable except as noted in HPI and below Physical Exam Vital Signs: Last Vital Signs Temp 102.3 F H 11/22/24 10:11 Pulse 94 11/22/24 10:11 BP 104/58 L 11/22/24 10:11 Pulse Ox 96 11/22/24 10:11 Oxygen Delivery Method Room Air 11/22/24 10:11 BMI result Body Mass Index 24.2 Const General: no acute distress; No comfortable Nutritional Appearance: well nourished Orientation/consciousness: patient oriented x3 HEENT Head: Yes normocephalic Ears: external ears normal and TM's normal bilaterally General nose exam: Normal external nose present and Nasal discharge present Face and sinus: Yes sinuses nontender Mouth: tongue normal and moist mucous membranes Throat: Yes uvula midline Resp Effort & Inspection: normal respiratory effort, able to speak in complete sentences and no cough Auscultation: clear to auscultation bilaterally, no crackles, no rales, no rhonchi and no wheezes Cardio Heart sounds: S1 normal heart sound present and S2 normal heart sound present Neuro General: patient oriented x3, gait normal and moves all extremities Psych Speech and movement: Normal speech and movement present Assessment & Plan Assessment & Plan (1) Acute respiratory disease: Code(s): J06.9 - Acute upper respiratory infection, unspecified Plan: Ordered SARs to r/o Flu/COVID/RSV Ordered Acetaminophen for pain relief Rest and hydrate well with warm fluids. Will Call Pt with Results and Treat Accordingly. Orders: Orders SARS-CoV2/FLU/RSV Today J06.9 - Acute upper respiratory infection, unspecified Medications: Refilled acetaminophen 1,000 mg (2 x 500 mg) PO Q6H PRN 30 caps 0RF pain J06.9 - Acute upper respiratory infection, unspecified Coding Level of Care Code Est Pt Level 4 (88160) Diagnoses Acute respiratory disease J06.9 Time Spent (min) 20
--- OUTSIDE RECORDS SUMMARY | 2024-11-22 12:15 | XMS_ITS | Clinical Summary ---
Author Organization [facility] [address] [place] [address] [place] [address] Phone Care Team Providers Care Service Worker Helper Name Role Phone Bernardo Bravo MD Primary Care Pr ovider Allergies No known active allergies Medications fluconazole (DIFLUCAN) 150 mg tablet Take 1 tab as needed for symptoms. May repeat dose in 72hrs if symptoms persist. 2 tablet 5 Active Additional Information Patient not taking.Reported on 10/12/2024 cetirizine (ZyrTEC) 10 mg tablet Take 1 tablet (10 mg total) by mouth 1 (one) time each day. 30 each 5 Active Vienva 0.1-20 mg-mcg per tablet TAKE 1 TABLET BY MOUTH 1 TIME EACH DAY. 28 tablet 5 5 Active Active Problems Problem Noted Date Diagnosed Date Hearing loss of right ear 08/16/2018 Overview (05/02/2024): Seen by Razia Banegas purchasing intern 03/15/2019 Left ear normal hearing. Right ear moderately severe hearing loss at 8709-7982 Hz Consistent use of hearing aids. Suggests preferential seating and reduced background noise. Needs to face talker and be within 6-8 fet of talker, speaking slowly Intrinsic atopic dermatitis 06/11/2010 Encounters Date Type Department Care Team Description 10/12/2024 2:00 PM EDT Office Visit [facility] - [address] [place] [phone] Darryl Perez PA Allergic contact dermatitis, unspecified trigger (Primary Dx) 10/12/2024 Nurse Triage Adult Medicine [address] [address] Bernardo Bravo MD from Last 3 Months Immunizations Name Administration [...] Used Date Smoking Tobacco: Never Assessed Comments No Sex and Gender Information Value Date Recorded Sex Assigned at Not on file Legal Sex Female 11:08 AM EDT Gender Identity Not on file Sexual Orientation Not on file Last Filed Vital Signs Vital Sign Reading Time Taken Comments Blood Pressure 106/69 10/12/2024 2:03 PM EDT Pulse 76 10/12/2024 2:03 PM EDT Temperature 36.6 C (97.8 F) 10/12/2024 2:03 PM EDT Respiratory Rate 12 05/02/2024 4:55 PM EST Oxygen Saturation - - Inhaled Oxygen Concentration - - Weight 65.8 kg (145 lb) 05/02/2024 4:55 PM EST Height 167.6 cm (5' 6 ) 05/02/2024 4:55 PM EST Body Mass Index 23.4 05/02/2024 4:55 PM EST Plan of Treatment Health Maintenance Due Date Last Done Comments Gonorrhea/Chlamydia Screening 2003 Meningococcal B Vaccine (1 of 2 - Standard) 2019 Annual Well Child Visit (3-21 years old) 10/14/2023 08/04/2022, 11/04/2020, 08/22/2019, Additional history exists HIV Screening 10/14/2023 Hepatitis C Screening 10/14/2023 Social Influencers of Health Screening 10/14/2023 Cervical Cancer Screening: Pap Smear 2024 Depression Screening 03/14/2024 DTaP,Tdap,and Td Vaccines (7 - Td or Tdap) 11/01/2024 11/01/2014, 06/23/2007, 11/06/2004, Additional history exists COVID-19 Vaccine ( - ) 11/12/2024 Influenza Vaccine (#1) 2024 0, 12/24/2015, 11/10/2012, Additional history exists Hepatitis B Vaccines Completed 2003, 2003, 2003 HIB Vaccines Completed 08/05/2004, 10/2003, 2003, Additional history exists Pneumococcal Vaccine: Pediatrics (0 to 5 Years) and At-Risk Patients (6 to 49 Years) Completed 08/05/2004, 2003, 2003, Additional history exists IPV Vaccines Completed 06/23/2007, 12/12, 2003, Additional history exists MMR Vaccines Completed 06/23/2007, 04/10/2004 Varicella Vaccines Completed 06/23/2007, 04/10/2004 Hepatitis A Vaccines Completed 12/24/2015, 10/27/19 14 HPV Vaccines Completed 08/10/2017, 12/24/2015 Meningococcal ACWY Vaccine Completed 08/29/2019, RSV Immunization Patients Under 20 months Aged Out No longer eligible based on patient's age to complete this topic Insurance [facility] [employer] Care Teams Service Worker Helper Relationship Specialty Start Date End Date Bernardo Bravo MD [address] [place] [address] PCP - General 09/05/23
--- OUTSIDE RECORDS SUMMARY | 2024-11-22 12:15 | XMS_ITS | Encounter Summary ---
Author Organization [facility] Address [address] [place] [address] Phone Care Team Providers Care Automotive Finance Manager Name Role Phone Provider, Breanna WRAY Primary Care Provider [phone] Encounter Details Date Type Department Care Team ([facility] st Contact Info) Description 10/28/2016 Conversion [facility]counter [facility] - Only [address] [place] [address] Social History Tobacco Use Types Packs/Day Years [...] on filedocumented in this encounter Care Teams Automotive Finance Manager Relationship Specialty Start Date End Date Provider, MD Breanna [address] [place] [address] PCP - General Pediatrics 05/05/23 01/17/24 documented as of this encounter
--- OUTSIDE RECORDS SUMMARY | 2024-11-22 12:15 | XMS_ITS | Clinical Summary ---
Author Organization [facility] Address [address] [place] [address] Phone Care Team Providers Care Recycle Coordinator Name Role Phone Unavailable Primary Care Provider Unavailabl e Allergies No known active allergies Medications Vienva 0.1-20 MG-MCG per tabletIndications: Encounter for initial prescription of contraceptive pills TAKE 1 TABLET BY MOUTH EVERY DAY 28 tablet 11 4 Active Active Problems Problem Noted Date Diagnosed Date Hearing loss of right ear 08/16/2018 Overview (05/15/2019): Seen by Razia Banegas first aid officer 03/15/2019 Left ear normal hearing. Right ear moderately severe hearing loss at 6558-3028 Hz Consistent use of hearing aids. Suggests preferential seating and reduced background noise. Needs to face talker and be within 6-8 fet of talker, speaking slowly Assessment & Plan (08/22/2019 4:13 PM EDT): Has hearing aide. Followed yearly by first aid officer Intrinsic atopic dermatitis 06/11/2010 Assessment & Plan [...] hearing screening, CBC, GC/Chlamydia screening, Lipid screening Immunizations Immunization Administration Dates Next Due DTaP [...] 73 08/04/2022 8:39 AM EDT Temperature 37.1 C (98.8 F) 07/14/2022 4:28 PM EDT Respiratory Rate - - Oxygen Saturation - [...] risk patients) 04/12/2023 04/12/2022 Influenza Vaccines (#1) 2024 02/20/20, 12/24/2015, 11/10/2012, Additional history exists DTaP,Tdap,and Td Vaccines (7 - Td or Tdap) 11/01/2024 11/01/2014, 06/23/2007, 11/06/2004, Additional history exists COVID-19 Vaccine ( - 2023-2 5 season) 2024 Hepatitis B Vaccines Completed 2003, 2003, 2003 HIB Vaccines Completed 08/05/2004, 0710/2003, 2003, Additional history exists Pneumococcal Vaccine Completed 08/05/2004, 2003, 2003, Additional history exists IPV Vaccines Completed 06/23/2007, 12/12, 2003, Additional history exists MMR Vaccines Completed 06/23/2007, 04/10/2004 Varicella Vaccines Completed 06/23/2007, 04/10/2004 Hepatitis A Vaccines Completed 12/24/2015, 10/27/19 14 HPV Vaccines Completed 08/10/2017, 12/24/2015 Meningococcal Vaccine Completed 08/29/2019, 015 Procedures * Due to [place] state law, this organization might not be sharing sensitive test results. Procedure Name Priority Date/Time Associated Diagnosis Comments CHLAMYDIA AND GONORRHEA, AMPLIFIED Routine 08/04/2022 9:17 AM EDT Encounter for screening examination for sexually transmitted disease RPR Routine 04/12/2022 2:53 PM EST Routine screening for STI (sexually transmitted infection) from Last 3 Months or Most Recently Relevant to Health Maintenance Results * Due to [place] state law, this organization might not be sharing sensitive test results. * Chlamydia and Gonorrhoea, Amplified (08/04/2022 9:17 AM EDT) Chlamydia Trachomatis, DNA Probe NEGATIVE (NEG) [facility] Comment: No Chlamydia Trachomatis RNA detected in this patient's sample (REFERENCE RANGE/NORMAL VALUE: NOT DETECTED) Note: This test uses ground mixer- mediated amplification method to detect rRNA from C. Trachomatis URINE GC AMP PROBE NEGATIVE (NEG) [facility] Comment: No Neisseria Gonorrhoeae RNA detected in this patient's sample (REFERENCE RANGE/NORMAL VALUE: NOT DETECTED) NOTE: This test uses ground mixer-mediated amplification method to detect rRNA from N.Gonorrhoeae. [...] without risk of sexual abuse. Consult the [facility] if needed. Contact phone number . Therapeutic failure or success cannot be determined with the Aptima Combo2 assay since nucleic acid may persist following appropriate antimicrobial therapy. The Centers for Disease Control and Prevention (CDC) recommends confirmatory retesting using culture or a different nucleic acid amplification test when positive results occur, if indicated. Testing performed or reported by [facility], a Service of [facility], [place] [place], [place] [address] Hayden Pisano MD, Outside Parts Salesman [facility]# [id number] Urine (Urine) 08/04/2022 9:1 7 AM EDT 08/04/2022 4:05 PM EDT Maru Pardo MD LAB MICROBIOLOGY - GENERAL ORDER JUAN ALBERTO Final Result Performing Organization Address [facility] Co de Phone Number [facility] * RPR (04/12/2022 2:53 PM EST) SYPHILIS SCREEN BY SB NEGATIVE (NEG) [facility] Comment: Reference range: Negative This test was performed on the [employer] Pellet Machine Operator immunoassay system. RPR Titer NOT INDICATED [facility] T pallidum Antibodies (TP-PA) NOT INDICATED [facility] SYPHILIS INTERPRETATION Indicative of the absence of infection with Treponemal pallidum. Test may be negative in cases of incubating or early primary syphilis. Consider repeat testing in several weeks if clinical suspicion is high. [facility] Comment: Testing performed or reported by [facility], a Service of [facility], [address] [place], [place] [address] Hayden Pisano MD, Outside Parts Salesman [facility]# [id number] Blood (Blood, Venous) 04/12/2022 2:53 PM EST 04/12/2022 2:55 PM EST Sara Guerrero MD LAB BLOOD ORDERABLES Final Re sult Performing Organization Address [facility] Co de Phone Number [facility] from Last 3 Months or Most Recently Relevant to Health Maintenance
--- OUTSIDE RECORDS SUMMARY | 2024-11-22 12:15 | XMS_ITS | Encounter Summary ---
Author Organization [facility] Address [address] [place] [address] Phone Care Team Providers Care Auto Air Conditioning Apprentice Name Role Phone Provider, Breanna WRAY Primary Care Provider [phone] Reason for Visit * Reason Comments Med Refill Encounter Details Date Type Department Care Team ([facility] st Contact Info) Description 04/09/2022 Refill [facility] [place] [address] [place] [address] Maru Pardo MD [address] [place] [address] Encounter for initial prescription of contraceptive pills [...] Last PE 11/04/20. Pt transferred to front end java developer to schedule PE. documented in this encounter Plan of Treatment Not on file documented as of this encounter Visit Diagnoses Diagnosis Encounter for initial prescription of contraceptive pills documented in this encounter Care Teams Auto Air Conditioning Apprentice Relationship Specialty Start Date End Date Provider, MD Breanna [address] [place] [address] PCP - General Pediatrics 05/05/23 01/17/24 documented as of this encounter
== END 2024-11-22 10:37 | disposition home or self-care (01) ==
PROVIDERS: PCP Nurse Practitioner Family; Visit Provider Nurse Practitioner Family
DX: J06.9 Acute upper respiratory infection, unspecified (principal)

== ENCOUNTER 2024-12-22 10:24 | Outpatient (AMB) | payer OTHER, SELFPAY ==
--- OUTSIDE RECORDS SUMMARY | 2024-12-22 10:26 | XMS_ITS | Encounter Summary ---
Author Organization [facility] Address [address] [place] [address] Phone Care Team Providers Care Diet Supervisor Name Role Phone Provider, Breanna WRAY Primary Care Provider [phone] Encounter Details Date Type Department Care Team ([facility] st Contact Info) Description 10/28/2016 Conversion Encounter [facility] [place] [address] [place] [address] Social History Tobacco Use Types Packs/Day Years [...] on filedocumented in this encounter Care Teams Diet Supervisor Relationship Specialty Start Date End Date Provider, MD Breanna [address] [place] [address] PCP - General Pediatrics 05/05/23 01/17/24 documented as of this encounter
--- OUTSIDE RECORDS SUMMARY | 2024-12-22 10:26 | XMS_ITS | Encounter Summary ---
Author Organization [facility] Address [address] [place] [address] Phone Care Team Providers Care Snowboarding Instructor Name Role Phone Provider, Breanna WRAY Primary Care Provider [phone] Reason for Visit * Reason Comments Med Refill Encounter Details Date Type Department Care Team ([facility] st Contact Info) Description 04/09/2022 Refill [facility] [place] [address] [place] [address] Maru Pardo MD [address] [place] [address] Encounter for initial prescription of contraceptive pills [...] refill. Last PE 11/04/20. Pt transferred to medical front desk specialist to schedule PE. documented in this encounter Plan of Treatment Not on file documented as of this encounter Visit Diagnoses Diagnosis Encounter for initial prescription of contraceptive pills documented in this encounter Care Teams Snowboarding Instructor Relationship Specialty Start Date End Date Provider, MD Breanna [address] [place] [address] PCP - General Pediatrics 05/05/23 01/17/24 documented as of this encounter
--- OUTSIDE RECORDS SUMMARY | 2024-12-22 10:26 | XMS_ITS | Clinical Summary ---
Author Organization [facility] Address [address] [place] [address] Phone Care Team Providers Care Cloth Bale Header Name Role Phone Unavailable Primary Care Provider Unavailabl e Allergies No known active allergies Medications Vienva 0.1-20 MG-MCG per tabletIndications: Encounter for initial prescription of contraceptive pills TAKE 1 TABLET BY MOUTH EVERY DAY 28 tablet 11 4 Active Active Problems Problem Noted Date Diagnosed Date Hearing loss of right ear 08/16/2018 Overview (05/15/2019): Seen by Razia Banegas ecosystem ecology professor 03/15/2019 Left ear normal hearing. Right ear moderately severe hearing loss at 3549-2399 Hz Consistent use of hearing aids. Suggests preferential seating and reduced background noise. Needs to face talker and be within 6-8 fet of talker, speaking slowly Assessment & Plan (08/22/2019 4:13 PM EDT): Has hearing aide. Followed yearly by ecosystem ecology professor Intrinsic atopic dermatitis 06/11/2010 Assessment & Plan [...] of Diabetes mellitus, Family history of Sudden /SD under 55, Family history of Migraines Social [...] Additional history exists COVID-19 Vaccine ( - 2024-2 6 season) 2024 Hepatitis B Vaccines Completed 2003, [...] Completed 08/29/2019, 015 Procedures * Due to [place] state law, this organization might not be sharing sensitive test results. Procedure Name Priority Date/Time Associated Diagnosis Comments CHLAMYDIA AND GONORRHEA, AMPLIFIED Routine 08/04/2022 9:17 AM EDT Encounter for screening examination for sexually transmitted disease RPR Routine 04/12/2022 2:53 PM EST Routine screening for STI (sexually transmitted infection) from Last 3 Months or Most Recently Relevant to Health Maintenance Results * Due to [place] state law, this organization might not be sharing sensitive test results. * Chlamydia and Gonorrhoea, Amplified (08/04/2022 9:17 AM EDT) Chlamydia Trachomatis, DNA Probe NEGATIVE (NEG) [facility] Comment: No Chlamydia Trachomatis RNA detected in this patient's sample (REFERENCE RANGE/NORMAL VALUE: NOT DETECTED) Note: This test uses bottom crane operator- mediated amplification method to detect rRNA from C. Trachomatis URINE GC AMP PROBE NEGATIVE (NEG) [facility] Comment: No Neisseria Gonorrhoeae RNA detected in this patient's sample (REFERENCE RANGE/NORMAL VALUE: NOT DETECTED) NOTE: This test uses bottom crane operator-mediated amplification method to detect rRNA from N.Gonorrhoeae. [...] without risk of sexual abuse. Consult the [facility] if needed. Contact phone number . Therapeutic failure or success cannot be determined with the Aptima Combo2 assay since nucleic acid may persist following appropriate antimicrobial therapy. The Centers for Disease Control and Prevention (CDC) recommends confirmatory retesting using culture or a different nucleic acid amplification test when positive results occur, if indicated. Testing performed or reported by [facility], a Service of [facility], [place] [place], [place] [address] Hayden Pisano MD, Manager School [facility]# [id number] Urine (Urine) 08/04/2022 9:1 7 AM EDT 08/04/2022 4:05 PM EDT Maru Pardo MD LAB MICROBIOLOGY - GENERAL ORDER JUAN ALBERTO Final Result Performing Organization Address [facility] Co de Phone Number [facility] * RPR (04/12/2022 2:53 PM EST) SYPHILIS SCREEN BY SB NEGATIVE (NEG) [facility] Comment: Reference range: Negative This test was performed on the [employer] Draftsperson immunoassay system. RPR Titer NOT INDICATED [facility] T pallidum Antibodies (TP-PA) NOT INDICATED [facility] SYPHILIS INTERPRETATION Indicative of the absence of infection with Treponemal pallidum. Test may be negative in cases of incubating or early primary syphilis. Consider repeat testing in several weeks if clinical suspicion is high. [facility] Comment: Testing performed or reported by [facility], a Service of [facility], [address] [place], [place] [address] Hayden Pisano MD, Manager School [facility]# [id number] Blood (Blood, Venous) 04/12/2022 2:53 PM EST 04/12/2022 2:55 PM EST Sara Guerrero MD LAB BLOOD ORDERABLES Final Re sult Performing Organization Address [facility] Co de Phone Number [facility] from Last 3 Months or Most Recently Relevant to Health Maintenance
--- OUTSIDE RECORDS SUMMARY | 2024-12-22 10:26 | XMS_ITS | Clinical Summary ---
Author Organization [facility] [address] [place] [address] [place] [address] Phone Care Team Providers Care Social Work Administrator Name Role Phone Bernardo Bravo MD Primary [...] 08/16/2018 Overview (05/02/2024): Seen by Razia Banegas plate straightener 03/15/2019 Left ear normal hearing. Right ear moderately severe hearing loss at 8112-8175 Hz Consistent use of hearing aids. Suggests preferential seating and reduced background noise. Needs to face talker and be within 6-8 fet of talker, speaking slowly Intrinsic atopic dermatitis 06/11/2010 Encounters Date Type Department Care Team Description 10/12/2024 2:00 PM EDT Office Visit [facility] - [address] [place] [phone] Darryl Perez PA Allergic contact dermatitis, unspecified trigger (Primary Dx) 10/12/2024 Nurse Triage Adult Medicine [address] [address] Bernardo Bravo MD from Last 3 Months Immunizations Immunization Administration Dates Next Due DTaP 5 pertussis [...] Information Value Date Recorded Sex Assigned at Female 12/17/2024 10:47 AM EDT Legal Sex Female 11:08 AM EDT Gender Identity Female 12/17/2024 10:47 AM EDT Sexual Orientation Not on file Last Filed [...] 06/23/2007, 11/06/2004, Additional history exists COVID-19 Vaccine (1 - 2023- season) 2024 Influenza Vaccine (#1) 2024 , 12/24/2015, 11/10/2012, Additional history exists RSV Immunization Adult Patients (1 - 1-dose 75+ series) 2078 Hepatitis B Vaccines Completed 2003, 2003, 2003 [...] patient's age to complete this topic Insurance [facility] [employer] Care Teams Social Work Administrator Relationship Specialty Start Date End Date Bernardo Bravo MD [address] [place] [phone] [facility] - General 09/05/23
--- NOTE | 2024-12-22 10:27 | AM.OFFWIN_ITS ---
Intake Vital Signs 12/22/24 10:30 Height 5 ft 6 in Weight 155 lb BMI 25.0 BP 100/60 Blood Pressure Location Lt brachial Position Sitting Respiration 16 Pulse 72 Pulse Source Pulse Oximeter Temp 98.5 F Temp Source Oral Pulse Oximetry (%) 97 Oxygen Delivery Method Room Air Intake Visit Reasons: Vaginal odor Intake Note: Pt is here today c/o foul vaginal odor x2days no d/c noted Patient Tobacco Use Status: Never used Tobacco Allergies No Known Allergies Allergy (Verified 12/22/24 10:27) HPI Vaginal odor HPI Details Pt notes fishy vaginal odor x 2 days. No pain or discharge. No dysuria No new sexual partners. Patient notes that she has had BV in the past and tolerated metronidazole which was effective. [facility] Medical History (Updated 05/31/24 @ 12:52 by Jenise Waite NP) Acute respiratory disease Social History Patient Tobacco Use Status: Never used Tobacco Review of Systems Const Denies chills, Denies fatigue, Denies fever(s), Denies headache(s) and Denies weakness ENT Denies dizziness and Denies headache(s) Card Denies dyspnea Resp Denies cough, Denies dyspnea, Denies wheezing and Denies other ( shortness of breath) Details: See HPI Musc Denies numbness and Denies tingling Neuro Denies dizziness, Denies headache(s), Denies numbness, Denies tingling, Denies paresthesias and Denies weakness Psych Denies anxiety and Denies depression Endo Denies fatigue Aller/Immun Denies wheezing Physical Exam Vital Signs: Last Vital Signs Temp 98.5 F 12/22/24 10:30 Pulse 72 12/22/24 10:30 Resp 16 12/22/24 10:30 BP 100/60 12/22/24 10:30 Pulse Ox 97 12/22/24 10:30 Oxygen Delivery Method Room Air 12/22/24 10:30 BMI result Body Mass Index 25.0 Const General: no acute distress and well developed Nutritional Appearance: well nourished Orientation/consciousness: patient oriented x3 HEENT Head: Yes normocephalic and Yes atraumatic Eyes General: appearance normal, both eyes and all related structures Pupils: Equal, round and reactive pupils present EOM: EOMs intact bilaterally Resp Effort & Inspection: normal respiratory effort Neuro General: patient oriented x3 and gait normal Cranial nerves: Yes Equal, round and reactive pupils present Psych Affect: normal affect Results AMB Urinalysis, Automated UA Leukoctes 0 Dannie/uL Last Edit by Leia Corral CMA on 12/22/24 10:35 UA Nitrite Negative Last Edit by Leia Corral, OLIVER on 12/22/24 10:35 UA Urobilinogen 0.2 mg/dL Last Edit by Leia Corral, OLIVER on 12/22/24 10:35 UA Protein 0 mg/dL Last Edit by Leia Corral, [employer] on 12/22/24 10:35 UA pH 6.0 Last Edit by Leia Corral, [employer] on 12/22/24 10:35 UA Blood 0 Andi/uL Last Edit by Leia Corral, OLIVER on 12/22/24 10:35 UA Specific [place] 1.010 Last Edit by Leia Corral, OLIVER on 12/22/24 10:35 UA Ketone Last Edit by Leia Corral, [employer] on 12/22/24 10:35 UA Bilirubin 0 mg/dL Last Edit by Leia Corral, [employer] on 12/22/24 10:35 UA Glucose 0 mg/dL Last Edit by Leia Corral, OLIVER on 12/22/24 10:35 Results Reviewed Results Reviewed: Laboratory Last Values Urine pH (Auto) 6.0 12/22/24 10:21 Specific [place] (Auto) 1.010 12/22/24 10:21 Urine Protein (Auto) 0 mg/dL 12/22/24 10:21 Glucose (UA)(Auto) 0 mg/dL 12/22/24 10:21 Urine Blood (Auto) 0 Andi/uL 12/22/24 10:21 Urine Nitrite (Auto) Negative 12/22/24 10:21 Urine Bilirubin (Auto) 0 mg/dL 12/22/24 10:21 Urine Urobilinogen (Auto) 0.2 mg/dL 12/22/24 10:21 Leukocyte Esterase (Auto) 0 Dannie/uL 12/22/24 10:21 Assessment & Plan Assessment & Plan (1) Bacterial vaginitis: Code(s): N76.0 - Acute vaginitis; B96.89 - Other specified bacterial agents as the cause of diseases classified elsewhere Plan: Likely bacterial vaginitis which patient has had before. She would like to avoid a pelvic exam today - deferred Will treat with metronidazole empirically. Did let patient know that if symptoms worsen or not improving or she has any other new, concerning symptoms. She should call or return to office. We also discussed that boric acid can be helpful if symptoms are recurrent, though she should also seek care to rule out other causes. Patient does not currently have a hat sprayer and is 19 years old. Advised her to get a hat sprayer to begin Pap smears and other hat sprayer care. Patient agrees. Orders: Orders AMB Urinalysis Automated Today Z13.9 - Encounter for screening, unspecified Medications: New metronidazole 500 mg PO BID 14 tabs 0RF 7 days Coding Level of Care Code Est Pt Level 3 (42295) Diagnoses Bacterial vaginitis N76.0; B96.89
[2024-12-22 10:30] VITALS: BP 100/60; PULSE 72; RESP 16; TEMP 36.9; O2SAT 97; BMI 25.0
== END 2024-12-22 11:02 | disposition home or self-care (01) ==
PROVIDERS: Visit Provider Family Medicine
DX: N76.0 Acute vaginitis (principal); B96.89 Other specified bacterial agents as the cause of diseases classified elsewhere; Z13.9 Encounter for screening, unspecified

== ENCOUNTER → 2024-12-22 10:24 | Outpatient (BNVA) | payer OTHER, SELFPAY | DX: N76.0 Acute vaginitis (principal); B96.89 Other specified bacterial agents as the cause of diseases classified elsewhere | CPT/HCPCS: 81003; 99212 ==